=== PATIENT | male | born 1980 | race Caucasian/White ===

== ENCOUNTER 2016-08-30 00:16 | Emergency (ER) | payer OTHER ==
[~2016-08-30] VITALS: Ht 175.3 cm; Wt 84.0 kg
[2016-08-30 00:23] VITALS: BP 171/81; PULSE 84; RESP 18; TEMP 98.2
[2016-08-30] MEDS ORDERED: IBUP400T20 PO (00:28)
[2016-08-30] MEDS ORDERED: TEST3GEL TOPICAL (00:29)
[2016-08-30] MEDS ORDERED: ONDANSETRON HCL 4 MG/2 ML VIAL IM ONE (00:45)
[2016-08-30] MEDS ORDERED: ORPHENADRINE INJ 60 MG/2 ML AMP IM ONE (00:45)
[2016-08-30] MEDS ORDERED: HYDROmorphone HCL PF 1 MG/ML VIAL IM ONE (00:45)
--- NOTE | 2016-08-30 02:46 | RADRPT ---
EXAM DATE/TIME: 08/30/2016 02:18 [place] COMPARISON: No previous studies available for comparison. INDICATIONS : Pain. NKI. MEDICAL HISTORY : None. SURGICAL HISTORY : Tonsillectomy. ENCOUNTER: Initial ACUITY: 1 day PAIN SCORE: 8/10 LOCATION: back TECHNIQUE: Multiplanar multisequence MRI of the lumbar spine was performed without contrast. FINDINGS: The most caudal appearing lumbar vertebra is numbered as L5. VERTEBRAE: Homogeneous signal. Normal alignment. Some increased disc desiccation at L2-3, L3-4 and L4-5. CONUS: Normal level and configuration. T12-L1: The thecal sac has a normal diameter. No evidence of disc bulge or protrusion. The neural foramina are patent bilaterally. L1-L2: The thecal sac has a normal diameter. No evidence of disc bulge or protrusion. The neural foramina are patent bilaterally. L2-L3: The thecal sac has a normal diameter. Minimal diffuse annular bulge. No evidence of disc protrusion. The neural foramina are patent bilaterally. L3-L4: The thecal sac has a normal diameter. Minimal diffuse annular bulge. No evidence of disc protrusion. The neural foramina are patent bilaterally. L4-L5: The thecal sac has a normal diameter. Minimal diffuse annular bulge. No evidence of disc protrusion. The neural foramina are patent bilaterally. L5-S1: The thecal sac has a normal diameter. No evidence of disc bulge or protrusion. The neural foramina are patent bilaterally. CONCLUSION: Mild degenerative disc disease at L2-3, L3-4 and L4-5. There are small bulges at each level. No evide nce of disc protrusion or nerve root compromise is identified Oc Dover MD on August 30, 2016 at 2:42 Board Certified Radiologist. This report was verified electronically.
[2016-08-30] MEDS ORDERED: IBUP800T23 PO (03:08)
[2016-08-30] MEDS ORDERED: PERC7.5T13 PO (03:08)
[2016-08-30] MEDS ORDERED: CYCL1TAB29 PO (03:08)
--- NOTE | 2016-08-30 03:08 | PD ---
HPI Chief Complaint: Back/ Neck Pain or Injury Time Seen by Provider: 00:34 Travel History International Travel<30 days: No Contact w/Intl Traveler<30days: No Traveled to known affect area: No History of Present Illness HPI The patient is a 36-year-old male that complains of low back pain and spasms so bad that he call the ambulance. He was playing with children and he states the pain tonight is worse than ever. He does have a history of herniated disks he states. He is from the [place] area and is down here till Wednesday. He denies any bladder or bowel dysfunction. The disc bulging and [place] was done with an MRI. He was treated with cortisone shots and they never recommended surgery. [facility] Past Medical History Influenza Vaccination: No Past Surgical History Tonsillectomy: Yes Social History Alcohol Use: Yes (occasionally) Tobacco Use: No Substance Use: No Allergies-Medications (Allergen,Severity, Reaction): Coded Allergies: No Known Allergies (Unverified , 08/30/16) Reported Meds & Prescriptions Reported Meds & Active Scripts Active Reported Testosterone Topical (Testosterone) 1 % Gel 12.5 Mg TOPICAL DAILY Ibuprofen 400 Mg Tab 400 Mg PO Q6H PRN Review of Systems Except as stated in HPI: all other systems reviewed are Neg Physical Exam Narrative GENERAL: The patient is alert, oriented 3 in moderate apparent distress with his low back pain. His vital signs show blood pressure 171/81 but are otherwise normal. SKIN: Focused skin assessment warm/dry. HEAD: Atraumatic. Normocephalic. EYES: Pupils equal and round. No scleral icterus. No injection or drainage. ENT: No nasal bleeding or discharge. Mucous membranes pink and moist. NECK: Trachea midline. No JVD. CARDIOVASCULAR: Regular rate and rhythm. No murmur appreciated. RESPIRATORY: No accessory muscle use. Clear to auscultation. Breath sounds equal bilaterally. GASTROINTESTINAL: Abdomen soft, non-tender, nondistended. Hepatic and splenic margins not palpable. MUSCULOSKELETAL: No obvious deformities. No clubbing. No cyanosis. No edema. Straight leg raising is positive at 50 bilaterally, deep tendon reflexes +1 bilaterally both patella Achilles and pinprick is normal. No muscle wasting is seen. NEUROLOGICAL: Awake and alert. No obvious cranial nerve deficits. Motor grossly within normal limits. Normal speech. PSYCHIATRIC: Appropriate mood and affect; insight and judgment normal. Data Data Last Documented VS Vital Signs Date Time Temp Pulse Resp B/P Pulse Ox O2 Delivery O2 Flow Rate FiO2 08/30/16 00:23 98.2 84 18 171/81 Orders Mri L Spine W/O Contrast (08/30/16 00:44) Ondansetron Inj (Zofran Inj) (08/30/16 00:45) Hydromorphone Pf Inj (Dilaudid Pf Inj) (08/30/16 00:45) Orphenadrine Inj (Norflex Inj) (08/30/16 00:45) MDM Medical Decision Making Medical Screen Exam Complete: Yes Emergency Medical Condition: Yes Medical Record Reviewed: Yes Interpretation(s) The MRI of the lumbar spine shows mild degenerative disc disease at L2 day she 3 , L3-4 and L4-5. There are small bulges at each level. No evidence of disc protrusion or nerve root compromise is identified. Differential Diagnosis Herniated nucleus pulposus, acute lumbosacral strain, lumbar radiculopathy Narrative Course The patient has mild disc protrusion and this appears to be a lumbar strain. Plan: The patient be given Percocet 7.5, Flexeril and Motrin 800. He will need to rest and allow this to calm down. He should follow-up with his doctors in [place] for this. Diagnosis Primary Impression: Acute lumbosacral myofascial strain Additional Instructions: Follow-up with your doctors in [place] when you get back. The Flexeril and Percocet both make you sleepy, do not combine them with alcohol and be careful about driving with any of this. Med/Other Pt SpecificInfo: Prescription(s) given Scripts Ibuprofen 800 Mg Fzn500 Mg PO TID #44 TAB Ref 0 Prov:Wisam Coates MD 08/30/16 Cyclobenzaprine (Flexeril)10 Mg Tab10 Mg PO TID #30 TAB Ref 0 Prov:Wisam Coates MD 08/30/16 Oxycodone-Acetaminophen (Percocet)7.5-325 mg Tab1 Tab PO Q4H PRN (PAIN) #30 TAB Ref 0 Prov:Wisam Coates MD 08/30/16 Disposition: 01 DISCHARGE HOME Condition: Stable Wisam Coates MD Aug 30, 2016 03:08
[2016-08-30 03:10] VITALS: BP 140/70
== END 2016-08-30 03:40 | disposition home or self-care (01) ==
LOC: PHED 00:16
DX: S39.012A Strain of muscle, fascia and tendon of lower back, initial encounter (principal); M62.830 Muscle spasm of back; Z87.39 Personal history of other diseases of the musculoskeletal system and connective tissue; X58.XXXA Exposure to other specified factors, initial encounter
CPT/HCPCS: 72148; 96372; 99285; J1170; J2360; J2405